=== PATIENT | male | born 1960 ===

== ENCOUNTER 2020-10-04 13:19 | Inpatient (IN) | payer OTHER ==
[~2020-10-04] VITALS: Ht 180.3 cm; Wt 87.1 kg
[~2020-10-04 13:19] MED LIST: C-500500 MG PO; CIPRO500 MG PO; FISH OIL OMEGA1 EAC2 PO; LEVSIN/SL0.125 MG SL; OMEPRAZOLE MAGN20 MG PO; ZOFRAN8 MG PO
[2020-10-04] MEDS ORDERED: ZOFRAN8 MG (13:28)
[2020-10-04] MEDS ORDERED: PRILOSEC OTC20 MG (13:28)
--- NOTE | 2020-10-04 13:29 | NUR ---
SE RECIBE PTE ALERTA Y ORIENTADO X3,EL CUAL REFIERE TENER LA BILIRRUBINA ELEVADA 3.6, LO REFIERE EL DR.PEREZ ROSENBAUM.
== END 2020-10-08 10:51 | disposition home or self-care (01) | DRG 446 ==
LOC: ER 13:19 → SEC-K 14:37 → MEDI 14:37 → MEDJ 10-05 17:45
PROVIDERS: ADMIT Internal Medicine; ATTEND Internal Medicine
PROC: 0FC98ZZ Extirpation of Matter from Common Bile Duct, Via Natural or Artificial Opening Endoscopic (ICD-10-PCS; principal; 2020-10-07)
PROC: 0FPB8DZ Removal of Intraluminal Device from Hepatobiliary Duct, Via Natural or Artificial Opening Endoscopic (ICD-10-PCS; 2020-10-07)
PROC: BF13YZZ Fluoroscopy of Gallbladder and Bile Ducts using Other Contrast (ICD-10-PCS; 2020-10-07)
DX: K80.51 Calculus of bile duct without cholangitis or cholecystitis with obstruction (principal); T85.858A Stenosis due to other internal prosthetic devices, implants and grafts, initial encounter; Z20.822 Contact with and (suspected) exposure to COVID-19